=== PATIENT | female | born 1985 | race Caucasian/White ===

== ENCOUNTER 2016-04-27 06:58 | Day surgery (SDC) | payer MEDICAID, OTHER ==
[~2016-04-27 06:58] MED LIST: Lactated Ringers 1,000 ML IV SCH; Sodium Chloride 0.9% 10 ML Syringe FLUSH PRN
[2016-04-27] MEDS ORDERED: Lactated Ringers 1,000 ML IV ONE (08:00)
[2016-04-27] MEDS ORDERED: Propofol 200 MG/20 ML SDV IV ONE (08:00)
[2016-04-27] MEDS ORDERED: Midazolam 1 MG/ML 2 ML SDV IV ONE (08:00)
[2016-04-27] MEDS ORDERED: Lidocaine 2% 100 MG/5 ML Syringe IVPUSH ONE (08:00)
--- NOTE | 2016-04-27 08:38 | PCM.OPNOTE ---
- General Post-Op/Procedure Note Date of Surgery/Procedure: 04/27/16 Operative Procedure(s): c scope Findings: internal hemorrhoids Pre Op Diagnosis: hematochezia Post-Op Diagnosis: internal hemorrhoids Anesthesia Technique: ALANA Primary Surgeon: Robin Fernandez Anesthesia Provider: Mayra Hernandez Pathology: none Complications: None Condition: Good Free Text/Narrative:: see dictation
--- NOTE | 2016-04-27 08:42 | PREOP ---
ADMISSION DATE: 04/27/2016 CHIEF COMPLAINT: Blood per rectum. HISTORY OF PRESENT ILLNESS: This is a 30-year-old white female, who is referred with a 3-day history of bleeding per rectum happening on an intermittent basis, but has now increase recently. The test was obtained apparently and was positive. She has had some abdominal pain as well as some cramping, does get pain on occasion with defecation. She has never had a colonoscopy. She does have a family history of colon cancer with a grandparent having had cancer. MEDICATIONS: Include: 1. vitamin with iron 1 per day. 2. Zinc 50 mg capsule 1 per day. 3. Calcium 600 mg tablet once per day. 4. Vitamin C 500 mg daily. 5. Zoloft 100 mg daily. 6. Klonopin 1 mg per day. 7. Levothyroxine 150 mcg daily. 8. Ibuprofen 200 mg on a p.r.n. basis. 9. Tylenol as needed. ALLERGIES: She has no known drug allergies. PAST MEDICAL HISTORY: Significant for a history of obesity, depressive disorder, idiopathic hirsutism, gout, myopia, fatigue, hypothyroidism, postsurgical. She has a history of a Hurthle cell carcinoma of the thyroid, vitamin D deficiency, seborrheic dermatitis, history of a duodenal switch, polycystic ovarian disease, zinc deficiency, vitamin B6 deficiency in , and history of infertility. She has a history of sleep disorder, obstructive sleep apnea, as well as a history of a difficult intubation and laparoscopic cholecystectomy. FAMILY HISTORY: Significant for coronary artery disease and heart disease, hypertension, depression, alcohol abuse, hypercholesterolemia, COPD, anxiety. 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 She is a current everyday smoker, does not drink. REVIEW OF SYSTEMS: CONSTITUTIONAL: Positive for night sweats. HEENT: Negative. Eyes, positive for occasional discharge of the right eye. RESPIRATORY: Negative. CARDIOVASCULAR: Positive for chest pain, which apparently happens about once a month on the right side of the chest. GASTROINTESTINAL: As per HPI. GENITOURINARY: Negative. MUSCULOSKELETAL: Positive for back pain. SKIN: Negative. ALLERGIC: Denies any environmental or food allergies. NEUROLOGIC: She gets occasional numbness in her fingers, depending on the position of her hands. PHYSICAL EXAMINATION: GENERAL: This is a well-developed, well-nourished female, appearing in no acute distress. HEENT: Grossly within normal limits. LUNGS: Clear to auscultation. HEART: Regular rate and rhythm. ABDOMEN: Soft and nontender. ASSESSMENT: Hematochezia. PLAN: Colonoscopy. Procedure and risks explained to the patient, to include bleeding, infection, and perforation. The patient expresses understanding, and she asked us to proceed. /[id number] /BRIANNAL
[2016-04-27 10:02] VITALS: BP 85/58
--- NOTE | 2016-04-27 11:15 | OR ---
DATE OF OPERATION: 04/27/2016 SURGEON: Robin Fernandez MD PROCEDURE PERFORMED: Colonoscopy. PREOPERATIVE DIAGNOSIS: Hematochezia. POSTOPERATIVE DIAGNOSIS: Internal hemorrhoids. INDICATIONS FOR PROCEDURE: This is a 30-year-old white female, referred with a history of intermittent bleeding per rectum. This has been going on for several years. It has recently gotten worse. She was offered and accepted a colonoscopy. DESCRIPTION OF OPERATION: After an excellent IV sedation was administered, digital rectal exam was performed. No marked abnormality was noted. The flexible colonoscope was inserted and advanced without difficulty to the patient's cecum. The prep was excellent. The following findings were noted. Ascending colon, unremarkable. Transverse colon, unremarkable. Descending colon, unremarkable. Sigmoid and rectum unremarkable. On retroflexion of the scope, there was some evidence of some internal hemorrhoids, which appeared to be the cause of her bleeding. Colon was deflated, and the scope was removed. The patient tolerated the procedure well and was taken to recovery room in good condition. I would recommend a high-fiber diet as well as some Anusol cream with applicator. /[id number] /MODL
== END 2016-04-27 09:40 | disposition home or self-care (01) ==
LOC: FB.SDS 06:58
PROVIDERS: ATTEND Surgery
PROC: 0DJD8ZZ Inspection of Lower Intestinal Tract, Via Natural or Artificial Opening Endoscopic (ICD-10-PCS; principal; 2016-04-27)
DX: K92.1 Melena (principal); K64.8 Other hemorrhoids; E66.9 Obesity, unspecified; F32.9 Major depressive disorder, single episode, unspecified; L68.0 Hirsutism; M10.9 Gout, unspecified; H52.10 Myopia, unspecified eye; E03.9 Hypothyroidism, unspecified; E55.9 Vitamin D deficiency, unspecified; G47.33 Obstructive sleep apnea (adult) (pediatric); Z79.899 Other long term (current) drug therapy; F17.200 Nicotine dependence, unspecified, uncomplicated
CPT/HCPCS: 81025; J2250; J2704; J7120

== ENCOUNTER 2017-02-12 20:35 | Observation (INO) | payer BC, SELFPAY ==
--- NOTE | 2017-02-12 20:49 | EDM.PDOC ---
ED HPI GENERAL MEDICAL PROBLEM - General Stated Complaint: INFECTION Time Seen by Provider: 02/12/17 20:35 Source of Information: Reports: Patient, Family History Limitations: Reports: No Limitations - History of Present Illness INITIAL COMMENTS - FREE TEXT/NARRATIVE: 31 y.o.w.f s/p Panniculectomy 02/02/2017 was seen by her plastic surgeon at [facility] wound check today. fluid for Gram stain and Cx was taken at [facility] today and the pat was started on Augmentin. Pt came to the ed today because of of a rash and pain at her lower abd. wall at the surgical site. Temp was elevated. No N/V/D dizziness or any other acute medical issues. Pt refised pain meds BP 125/58 Pulse 100 temp 39.8 O2 100% RR 18 Onset Date: 02/12/17 Onset Time: 12:00 Duration: Hour(s):, Getting Worse Location: Reports: Abdomen (wall) Quality: Reports: Ache, Burning, Dull Severity: Moderate Improves with: Reports: Rest Worsens with: Reports: Movement Context: Reports: Other (S/P panectomy 02/02/2017) Lower Abdomen Pain Score (Numeric/FACES): 8 - Related Data Allergies Allergy/AdvReac Type Severity Reaction Status Date / Time No Known Allergies Allergy Verified 02/12/17 20:59 Home Meds: Home Meds Levothyroxine 150 mcg PO [id number] 04/24/16 [History] Sertraline [Zoloft] 200 mg PO DAILY 04/24/16 [History] ALPRAZolam [Xanax] 0.5 mg PO Q8H PRN 02/13/17 [History] Bariatric Multivitamin 1 tab PO DAILY 02/13/17 [History] Docusate Sodium [Colace] 100 mg PO BID 02/13/17 [History] Gabapentin [Neurontin] 100 mg PO BID 02/13/17 [History] Levothyroxine 300 mcg PO LEIJA@0600 02/13/17 [History] busPIRone [Buspar] 15 mg PO BID 02/13/17 [History] hydrOXYzine HCl [hydrOXYzine] 25 mg PO BEDTIME PRN tablet 02/13/17 [Rx] oxyCODONE HCl/Acetaminophen [Endocet 5-325 Tablet] 1 - 2 tab PO Q4H PRN [History] traMADol [Ultram] 100 mg PO ONETIME PRN tablet 02/13/17 [Rx] Past Medical History Cardiovascular History: Reports: None Respiratory History: Reports: Sleep Apnea 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 History: Reports: Polycystic Ovaries, Psychiatric History: Reports: Depression Endocrine/Metabolic History: Reports: Hypothyroidism, Vitamin D Deficiency, Other (See Below) Other Endocrine/Metabolic History: ZINC DEFICIENCY, IDIOPATHIC HIRSUTISM Hematologic History: Reports: Other (See Below) Other Hematologic History: B6 DEFICIENCY Oncologic (Cancer) History: Reports: Thyroid Dermatologic History: Reports: Seborrheic Dermatitis - Past Surgical History HEENT Surgical History: Reports: Oral Surgery GI Surgical History: Reports: Bariatric Procedure, Cholecystectomy Social & Family History - Tobacco Use Smoking Status *Q: Current Every Day Smoker Years of Tobacco use: 4 Packs/Tins Daily: 0.5 Used Tobacco, but Quit: No - Caffeine Use Caffeine Use: Reports: Soda - Recreational Drug Use Recreational Drug Use: No Drug Use in Last 12 Months: No ED ROS GENERAL - Review of Systems Review Of Systems: See Below Constitutional: Reports: No Symptoms HEENT: Reports: No Symptoms Respiratory: Reports: No Symptoms Cardiovascular: Reports: No Symptoms Endocrine: Reports: No Symptoms GI/Abdominal: Reports: No Symptoms : Reports: No Symptoms Musculoskeletal: Reports: No Symptoms Skin: Reports: Wound (cellulitis) Neurological: Reports: No Symptoms Psychiatric: Reports: No Symptoms Hematologic/Lymphatic: Reports: No Symptoms Immunologic: Reports: No Symptoms ED EXAM, SKIN/RASH Exam: See Below Exam Limited By: No Limitations General Appearance: Alert, WD/WN, Mild Distress, Obese (morbid) Eye Exam: Bilateral Eye: Normal Inspection Ears: Normal External Exam Nose: Normal Inspection Throat/Mouth: Normal Inspection, Normal Lips Head: Atraumatic, Normocephalic Neck: Normal Inspection, Supple, Non-Tender Respiratory/Chest: No Respiratory Distress, Lungs Clear, Normal Breath Sounds Cardiovascular: Normal Peripheral Pulses, Regular Rate, Rhythm, No Edema, No Gallop Peripheral Pulses: 1+: Femoral (R) GI/Abdominal: Normal Bowel Sounds, Soft, Non-Tender, No Organomegaly (Female) Exam: Deferred Rectal (Female) Exam: Deferred Back Exam: Normal Inspection, Full Range of Motion Extremities: Normal Inspection, Normal Range of Motion, Non-Tender, No Pedal Edema, Normal Capillary Refill Neurological: Alert, Oriented, CN II-XII Intact, Normal Cognition, Normal Gait Psychiatric: Normal Affect, Normal Mood Skin: Warm, Dry, Rash (lower abdomine, possible formable abscess, not drainable) Location, Skin: Abdomen (wall) Characteristics: Erythematous Lymphatic: No Adenopathy EKG INTERPRETATION EKG Date: 02/12/17 Time: 21:55 Rhythm: NSR Rate (Beats/Min): 90 [place]: Normal P-Wave: Present QRS: Normal ST-T: Normal QT: Normal Comparison: NA - No Prior EKG Course - Vital Signs Text/Narrative:: 31 y.o.w.f s/p Panniculectomy 02/02/2017 [facility] fluid for Gram stain and Cx was taken at [facility] today and the pat was started on Augmentin. Pt came to the ed today because of of a rash and pain at her lower abd. wall at the surgical site. Temp was elevated. No N/V/D dizziness or any other acute medical issues. Pt refised pain meds BP 125/58 Pulse 100 temp 39.8 O2 100% RR 18 PE: Obese, lower abd wall cellulitis, possible formable abscess lower abd. wall , non drainable. Imaging: Abddominal wall cellulitis, no drainable subcutaneous fluid collection , official report is pending Labs: WBC 20.5 witj left shift Cx results are pending. Lactic acid 1.2 , Potassium: 2.8 ECG: NSR Impression: Abdominal wall cellulitis with possible abscess forming(not drainable), S/P Panniculectomy, Leucocytosis, Hypokalemia Tx: Rocephin, Potassium, NS, Toradol, Morphine 10.01 pm Consultation: Dr. Saunders [facility] surgeon: CT abd/pelvis without any contrast, Abx iv, admit for observation at [facility] 11.21 pm Consultation: Dr. Saunders to review the CT Abd/pelvis: No drainable abscess, Gram stain and Cx from Wound drainage right lower abd were taken in [place] today. Recommended to give I.V abx til temp and WBC are nl, then to switch to PO Abx. Reexam: Improved, Fever subsided Plan: admit to [facility]. Last Recorded V/S: Last Vital Signs Temp 37.1 C 02/13/17 12:00 Pulse 86 02/13/17 12:00 Resp 18 02/13/17 12:00 BP 103/64 02/13/17 12:00 Pulse Ox 100 02/13/17 12:00 - Orders/Labs/Meds Orders: Active Orders 24 hr Category Date Time Status Abdomen Pelvis wo Cont [CT] Stat Exams 02/12/17 22:03 Taken CULTURE BLOOD [BC] Urgent Lab 02/12/17 21:00 Received CULTURE BLOOD [BC] Urgent Lab 02/12/17 21:05 Received Blood Culture x2 Reflex Set [OM.PC] Urgent Oth 02/12/17 20:47 Ordered Saline Lock Insert [OM.PC] Routine Oth 02/12/17 22:08 Ordered EKG 12 Lead [EK] Routine Ther 02/12/17 21:45 Ordered Labs: Laboratory Tests 02/12/17 02/12/17 02/12/17 Range/Units 21:00 21:00 21:00 WBC 20.3 H (4.5-12.0) X10-3/uL RBC 3.31 (3.23-5.20) x10(6)uL Hgb 10.1 L (11.5-15.5) g/dL Hct 29.4 L (30.0-51.3) % MCV 88.7 (80-96) fL MCH 30.4 (27.7-33.6) pg MCHC 34.3 (32.2-35.4) g/dL RDW 13.1 (11.5-15.5) % Plt Count 352 (125-369) X10(3)uL MPV 8.0 (7.4-10.4) fL Add Manual Diff Yes Neutrophils % (Manual) 84 H (46-82) % Band Neutrophils % 3 (0-6) % Lymphocytes % (Manual) 10 L (13-37) % Monocytes % (Manual) 3 L (4-12) % Sodium 136 (135-145) mmol/L Potassium 2.8 L* (3.5-5.3) mmol/L Chloride 101 (100-110) mmol/L Carbon Dioxide 25 (21-32) mmol/L BUN 8 (7-18) mg/dL Creatinine 0.8 (0.55-1.02) mg/dL Est Cr Clr Drug Dosing 90.00 mL/min Estimated GFR (MDRD) > 60 (>60) BUN/Creatinine Ratio 10.0 (9-20) Glucose 107 (80-116) mg/dL Lactic Acid 1.2 (0.4-2.2) mmol/L Calcium 8.0 L (8.6-10.2) mg/dL Urine Color (YELLOW) Urine Appearance (CLEAR) Urine pH (5.0-6.5) Ur Specific [place] (1.010-1.025) Urine Protein (NEGATIVE) mg/dL Urine Glucose (UA) (NEGATIVE) mg/dL Urine Ketones (NEGATIVE) mg/dL Urine Occult Blood (NEGATIVE) Urine Nitrite (NEGATIVE) Urine Bilirubin (NEGATIVE) Urine Urobilinogen (NEGATIVE) mg/dL Ur Leukocyte Esterase (NEGATIVE) Urine RBC (0) Urine WBC (0) Ur Squamous Epith Cells (NS,R,O) Urine Bacteria (NS) 02/12/17 Range/Units 22:18 WBC (4.5-12.0) X10-3/uL RBC (3.23-5.20) x10(6)uL Hgb (11.5-15.5) g/dL Hct (30.0-51.3) % MCV (80-96) fL MCH (27.7-33.6) pg MCHC (32.2-35.4) g/dL RDW (11.5-15.5) % Plt Count (125-369) X10(3)uL MPV (7.4-10.4) fL Add Manual Diff Neutrophils % (Manual) (46-82) % Band Neutrophils % (0-6) % Lymphocytes % (Manual) (13-37) % Monocytes % (Manual) (4-12) % Sodium (135-145) mmol/L Potassium (3.5-5.3) mmol/L Chloride (100-110) mmol/L Carbon Dioxide (21-32) mmol/L BUN (7-18) mg/dL Creatinine (0.55-1.02) mg/dL Est Cr Clr Drug Dosing mL/min Estimated GFR (MDRD) (>60) BUN/Creatinine Ratio (9-20) Glucose (80-116) mg/dL Lactic Acid (0.4-2.2) mmol/L Calcium (8.6-10.2) mg/dL Urine Color Yellow (YELLOW) Urine Appearance Clear (CLEAR) Urine pH 6.0 (5.0-6.5) Ur Specific [place] 1.010 (1.010-1.025) Urine Protein Negative (NEGATIVE) mg/dL Urine Glucose (UA) Normal (NEGATIVE) mg/dL Urine Ketones Negative (NEGATIVE) mg/dL Urine Occult Blood Negative (NEGATIVE) Urine Nitrite Negative (NEGATIVE) Urine Bilirubin Negative (NEGATIVE) Urine Urobilinogen Normal (NEGATIVE) mg/dL Ur Leukocyte Esterase Negative (NEGATIVE) Urine RBC 0-5 (0) Urine WBC 0-5 (0) Ur Squamous Epith Cells Occasional (NS,R,O) Urine Bacteria Rare H (NS) Meds: Medications Discontinued Medications Generic Name Dose Route Start Last Admin Trade Name Freq PRN Reason Stop Dose Admin Acetaminophen 650 mg 02/12/17 21:14 02/12/17 21:17 Tylenol PO 02/12/17 21:15 650 mg NOW ONE Administration Acetaminophen 650 mg 02/13/17 07:48 02/13/17 08:18 Tylenol PO 650 mg Q4H PRN Administration Temperature Buspirone HCl 15 mg 02/13/17 09:15 02/13/17 09:57 Buspar PO 15 mg BID JENNI Administration Ceftriaxone Sodium 1,000 mg 02/12/17 21:50 02/12/17 23:27 Rocephin IM 02/12/17 21:51 Not Given ONETIME ONE Docusate Sodium 100 mg 02/13/17 09:15 02/13/17 10:06 Colace PO 100 mg BID JENNI Administration Gabapentin 100 mg 02/13/17 09:15 02/13/17 09:57 Neurontin PO 100 mg BID JENNI Administration Hydroxyzine HCl 25 mg 02/12/17 23:53 02/13/17 00:04 Atarax PO 25 mg BEDTIME PRN Administration Insomnia Ceftriaxone Sodium 2 gm/ 100 mls @ 200 mls/hr 02/12/17 22:04 02/12/17 22:46 Sodium Chloride IV 02/12/17 22:33 200 mls/hr ONETIME ONE Administration Sodium Chloride 1,000 mls @ 125 mls/hr 02/12/17 23:30 02/13/17 08:27 Normal Saline IV 125 mls/hr ASDIRECTED JENNI Administration Vancomycin HCl 2,000 mg/ 500 mls @ 250 mls/hr 02/13/17 11:00 02/13/17 11:47 Sodium Chloride IV 02/13/17 12:59 250 mls/hr ONETIME ONE Administration Piperacillin Sod/Tazobactam 50 mls @ 100 mls/hr 02/13/17 11:45 02/13/17 12:11 Sod 3.375 gm/ Sodium Chloride IV 02/13/17 12:14 100 mls/hr ONETIME ONE Administration Ibuprofen 600 mg 02/12/17 21:13 02/12/17 21:16 Motrin PO 02/12/17 21:14 600 mg ONETIME ONE Administration Levothyroxine Sodium 150 mcg 02/15/17 06:00 Levothyroxine PO MoTuWeThFrSa JENNI Levothyroxine Sodium 150 mcg 02/13/17 09:45 02/13/17 09:57 Levothyroxine PO 02/13/17 09:46 150 mcg ONETIME ONE Administration Levothyroxine Sodium 300 mcg 02/14/17 06:00 Levothyroxine PO Leija@0600 JENNI Morphine Sulfate 2 mg 02/12/17 23:18 02/13/17 00:03 Morphine IVPUSH 02/12/17 23:19 2 mg ONETIME STA Administration Multivitamins/Minerals 1 tab 02/13/17 09:15 02/13/17 10:06 Thera M Plus PO 1 tab DAILY JENNI Administration Ondansetron HCl 4 mg 02/12/17 23:11 Zofran IV Q4H PRN Nausea/Vomiting Oxycodone/Acetaminophen 2 tab 02/13/17 09:05 02/13/17 10:06 Percocet 325-5 Mg PO 2 tab Q4H PRN Administration Pain Piperacillin Sod/Tazobactam Sod 3.375 gm 02/13/17 11:00 02/13/17 12:18 Zosyn IV 02/13/17 11:01 Not Given ONETIME ONE Potassium Chloride 40 meq 02/12/17 21:45 02/12/17 21:50 Klor-Con M20 PO 02/12/17 21:46 40 meq ONETIME ONE Administration Sertraline HCl 200 mg 02/13/17 09:15 02/13/17 09:57 Zoloft PO 200 mg DAILY JENNI Administration Sodium Chloride 10 ml 02/12/17 22:08 02/12/17 22:40 Saline Flush FLUSH 10 ml ASDIRECTED PRN Administration Keep Vein Open Tramadol HCl 100 mg 02/13/17 00:03 02/13/17 05:56 Ultram PO 02/13/17 00:04 Not Given ONETIME ONE Tramadol HCl 100 mg 02/13/17 05:51 Ultram PO 02/14/17 05:52 ONETIME PRN Pain Vancomycin HCl Confirm 02/13/17 11:36 02/13/17 11:53 Vancomycin Administered 02/13/17 11:37 Not Given Dose 2,000 mg .ROUTE .STK-MED ONE Departure - Departure Time of Disposition: 21:00 Disposition: Refer to Observation Condition: Fair Clinical Impression: Cellulitis - Discharge Information - My Orders Last 24 Hours: My Active Orders 02/12/17 20:47 Blood Culture x2 Reflex Set [OM.PC] Urgent 02/12/17 21:00 CULTURE BLOOD [BC] Urgent 02/12/17 21:05 CULTURE BLOOD [BC] Urgent 02/12/17 21:45 EKG 12 Lead [EK] Routine 02/12/17 22:03 Abdomen Pelvis wo Cont [CT] Stat 02/12/17 22:08 Saline Lock Insert [OM.PC] Routine - Assessment/Plan Last 24 Hours: My Active Orders 02/12/17 20:47 Blood Culture x2 Reflex Set [OM.PC] Urgent 02/12/17 21:00 CULTURE BLOOD [BC] Urgent 02/12/17 21:05 CULTURE BLOOD [BC] Urgent 02/12/17 21:45 EKG 12 Lead [EK] Routine 02/12/17 22:03 Abdomen Pelvis wo Cont [CT] Stat 02/12/17 22:08 Saline Lock Insert [OM.PC] Routine
[2017-02-12] MEDS ORDERED: Ibuprofen 600 MG Tab PO ONE (21:13)
[2017-02-12] MEDS ORDERED: Acetaminophen 325 MG Tab PO ONE (21:14)
[2017-02-12] MEDS ORDERED: Potassium Chloride 20 MEQ Tab.ER PO ONE (21:45)
[2017-02-12] MEDS ORDERED: cefTRIAXone 1,000 MG VIAL IM ONE (21:50)
[2017-02-12] MEDS ORDERED: cefTRIAXone 2 GM in Sodium Chloride 0.9% 100 ML IV ONE (22:04)
[2017-02-12] MEDS ORDERED: Sodium Chloride 0.9% 10 ML Syringe FLUSH PRN (22:08)
[2017-02-12] MEDS ORDERED: Docusate Sodium 100 MG Cap PO PRN (23:11)
[2017-02-12] MEDS ORDERED: Ondansetron 4 MG/2 ML SDV IV PRN (23:11)
[2017-02-12] MEDS ORDERED: Morphine 2 MG/ML Syringe IVPUSH STA (23:18)
[2017-02-12] MEDS: Sodium Chloride 0.9% 1,000 ML IV SCH (23:25)
[2017-02-12] MEDS ORDERED: hydrOXYzine HCl 25 MG Tab PO PRN (23:53)
[2017-02-13] MEDS ORDERED: traMADol 50 MG Tab PO ONE (00:03)
[2017-02-13] MEDS ORDERED: traMADol 50 MG Tab PO PRN (05:51)
[2017-02-13] MEDS ORDERED: Acetaminophen 325 MG Tab PO PRN (07:48)
[2017-02-13] MEDS: Sodium Chloride 0.9% 1,000 ML IV SCH (08:27)
[2017-02-13] MEDS ORDERED: Acetaminophen/oxyCODONE 325-5 MG Tab PO PRN (09:05)
--- NOTE | 2017-02-13 09:08 | PCM.HP ---
H&P History of Present Illness - General Date of Service: 02/13/17 Admit Problem/Dx: Admission Diagnosis/Problem Admission Diagnosis/Problem Cellulitis Source of Information: Patient - History of Present Illness Initial Comments - Free Text/Narative: 31 y f presents s/p paniculectomy 02/02/2018. seen by PA 2 days for post op drain removal. present to surgeon clinic for increased redness and drainage at sight. placed on augmentin. presented to ER with increased pain and drainage and temp 103F inability to tolerate oral augmentin. no n/v. no cp/pressure. no cough, sob or congestion. no dizziness or lightheadedness on standing. no abdominal destension. no opening of incision. no leg pain or swelling. Lower Abdomen Pain Score (Numeric/FACES): 3 - Related Data Allergies/Adverse Reactions: Allergies Allergy/AdvReac Type Severity Reaction Status Date / Time No Known Allergies Allergy Verified 02/12/17 20:59 Home Medications: Home Meds Levothyroxine 150 mcg PO MOTUWETHFRSA 04/24/16 [History] Sertraline [Zoloft] 200 mg PO DAILY 04/24/16 [History] ALPRAZolam [Xanax] 0.5 mg PO Q8H PRN 02/13/17 [History] Amoxicillin/Potassium Clav [Augmentin 875-125 Tablet] 1 each PO BID 02/13/17 [ History] Bariatric Multivitamin 1 tab PO DAILY 02/13/17 [History] Docusate Sodium [Colace] 100 mg PO BID 02/13/17 [History] Gabapentin [Neurontin] 100 mg PO BID 02/13/17 [History] Levothyroxine 300 mcg PO LEIJA@0600 02/13/17 [History] busPIRone [Buspar] 15 mg PO BID 02/13/17 [History] oxyCODONE HCl/Acetaminophen [Endocet 5-325 Tablet] 1 - 2 tab PO Q4H PRN [History] Past Medical History Cardiovascular History: Reports: None Respiratory History: Reports: Sleep Apnea HYDROGRAPHER History: Reports: Polycystic Ovaries, Neurological History: Reports: Neuropathy, Peripheral Psychiatric History: Reports: Depression Endocrine/Metabolic History: Reports: Hypothyroidism, Vitamin D Deficiency, Other (See Below) Other Endocrine/Metabolic History: ZINC DEFICIENCY, IDIOPATHIC HIRSUTISM Hematologic History: Reports: Other (See Below) Other Hematologic History: B6 DEFICIENCY Oncologic (Cancer) History: Reports: Thyroid Dermatologic History: Reports: Seborrheic Dermatitis - Infectious Disease History Infectious Disease History: Reports: Chicken Pox - Past Surgical History HEENT Surgical History: Reports: Oral Surgery GI Surgical History: Reports: Bariatric Procedure, Cholecystectomy Dermatological Surgical History: Reports: Plastic Surgical Reconstruction/Repair Other Dermatological Surgeries/Procedures: paniculectomy Social & Family History - Family History Family Medical History: Noncontributory - Tobacco Use Smoking Status *Q: Current Every Day Smoker Years of Tobacco use: 4 Packs/Tins Daily: 0.5 Used Tobacco, but Quit: No Month Tobacco Last Used: Nov 2016 Second Hand Smoke Exposure: No - Caffeine Use Caffeine Use: Reports: Soda - Recreational Drug Use Recreational Drug Use: No Drug Use in Last 12 Months: No H&P Review of Systems - Review of Systems: Review Of Systems: ROS reveals no pertinent complaints other than HPI. Exam - Exam Exam: See Below - Vital Signs Vital Signs: Vital Signs (72 hours) 02/12/17 02/12/17 02/12/17 21:02 21:16 23:06 Temperature 103.6 F H Temperature [ Oral] Temperature [ 103.6 F H 102.4 F H Tympanic] Pulse, Peripheral [ Left] Pulse, 100 Peripheral [ Right Pulse Oximetry] Respiratory 16 Rate Blood Pressure 125/58 L [Left Upper Arm ] O2 Sat by Pulse 100 Oximetry 02/12/17 02/12/17 02/13/17 23:20 23:45 04:30 Temperature Temperature [ 98.4 F 98.4 F Oral] Temperature [ 99.7 F Tympanic] Pulse, 80 76 Peripheral [ Left] Pulse, Peripheral [ Right Pulse Oximetry] Respiratory 18 17 16 Rate Blood Pressure 105/48 L 110/53 L [Left Upper Arm ] O2 Sat by Pulse 97 96 97 Oximetry 02/13/17 07:50 Temperature Temperature [ 99.1 F Oral] Temperature [ Tympanic] Pulse, 96 Peripheral [ Left] Pulse, Peripheral [ Right Pulse Oximetry] Respiratory 18 Rate Blood Pressure 100/56 L [Left Upper Arm ] O2 Sat by Pulse 95 Oximetry Weight: 85.049 kg - Exam General: Alert Lungs: Clear to Auscultation, Normal Respiratory Effort Cardiovascular: Regular Rate, Regular Rhythm GI/Abdominal Exam: Normal Bowel Sounds, Other (paniculectomy incision indurated 3 cm passed central with right bartolo sight draining mucopurulent discharge on palpation 3 ml. no incision dehiscense. very tender to palpation. ) Extremities: No: Non-Tender, No Pedal Edema, Pedal Edema Skin: Incision Psychiatric: Alert, Normal Affect, Normal Mood - Patient Data Lab Results Last 24 hrs: Laboratory Tests 02/12/17 02/12/17 02/12/17 Range/Units 21:00 21:00 21:00 WBC 20.3 H (4.5-12.0) X10-3/uL RBC 3.31 (3.23-5.20) x10(6)uL Hgb 10.1 L (11.5-15.5) g/dL Hct 29.4 L (30.0-51.3) % MCV 88.7 (80-96) fL MCH 30.4 (27.7-33.6) pg MCHC 34.3 (32.2-35.4) g/dL RDW 13.1 (11.5-15.5) % Plt Count 352 (125-369) X10(3)uL MPV 8.0 (7.4-10.4) fL Add Manual Diff Yes Neutrophils % (Manual) 84 H (46-82) % Band Neutrophils % 3 (0-6) % Lymphocytes % (Manual) 10 L (13-37) % Monocytes % (Manual) 3 L (4-12) % Hypersegmented Neuts Toxic Granulation (NOT SEEN) Sodium 136 (135-145) mmol/L Potassium 2.8 L* (3.5-5.3) mmol/L Chloride 101 (100-110) mmol/L Carbon Dioxide 25 (21-32) mmol/L BUN 8 (7-18) mg/dL Creatinine 0.8 (0.55-1.02) mg/dL Est Cr Clr Drug Dosing 90.00 mL/min Estimated GFR (MDRD) > 60 (>60) BUN/Creatinine Ratio 10.0 (9-20) Glucose 107 (80-116) mg/dL Lactic Acid 1.2 (0.4-2.2) mmol/L Calcium 8.0 L (8.6-10.2) mg/dL Urine Color (YELLOW) Urine Appearance (CLEAR) Urine pH (5.0-6.5) Ur Specific [place] (1.010-1.025) Urine Protein (NEGATIVE) mg/dL Urine Glucose (UA) (NEGATIVE) mg/dL Urine Ketones (NEGATIVE) mg/dL Urine Occult Blood (NEGATIVE) Urine Nitrite (NEGATIVE) Urine Bilirubin (NEGATIVE) Urine Urobilinogen (NEGATIVE) mg/dL Ur Leukocyte Esterase (NEGATIVE) Urine RBC (0) Urine WBC (0) Ur Squamous Epith Cells (NS,R,O) Urine Bacteria (NS) 02/12/17 02/13/17 02/13/17 Range/Units 22:18 06:35 06:35 WBC 18.5 H (4.5-12.0) X10-3/uL RBC 3.03 L (3.23-5.20) x10(6)uL Hgb 8.9 L (11.5-15.5) g/dL Hct 27.3 L (30.0-51.3) % MCV 90.3 (80-96) fL MCH 29.4 (27.7-33.6) pg MCHC 32.5 (32.2-35.4) g/dL RDW 13.1 (11.5-15.5) % Plt Count 246 (125-369) X10(3)uL MPV 8.3 (7.4-10.4) fL Add Manual Diff Yes Neutrophils % (Manual) 91 H (46-82) % Band Neutrophils % 1 (0-6) % Lymphocytes % (Manual) 5 L (13-37) % Monocytes % (Manual) 3 L (4-12) % Hypersegmented Neuts Moderate Toxic Granulation Few H (NOT SEEN) Sodium 140 (135-145) mmol/L Potassium 3.5 (3.5-5.3) mmol/L Chloride 107 D (100-110) mmol/L Carbon Dioxide 25 (21-32) mmol/L BUN 7 (7-18) mg/dL Creatinine 0.6 (0.55-1.02) mg/dL Est Cr Clr Drug Dosing 120.00 mL/min Estimated GFR (MDRD) > 60 (>60) BUN/Creatinine Ratio 11.7 (9-20) Glucose 92 (80-116) mg/dL Lactic Acid (0.4-2.2) mmol/L Calcium 8.1 L (8.6-10.2) mg/dL Urine Color Yellow (YELLOW) Urine Appearance Clear (CLEAR) Urine pH 6.0 (5.0-6.5) Ur Specific [place] 1.010 (1.010-1.025) Urine Protein Negative (NEGATIVE) mg/dL Urine Glucose (UA) Normal (NEGATIVE) mg/dL Urine Ketones Negative (NEGATIVE) mg/dL Urine Occult Blood Negative (NEGATIVE) Urine Nitrite Negative (NEGATIVE) Urine Bilirubin Negative (NEGATIVE) Urine Urobilinogen Normal (NEGATIVE) mg/dL Ur Leukocyte Esterase Negative (NEGATIVE) Urine RBC 0-5 (0) Urine WBC 0-5 (0) Ur Squamous Epith Cells Occasional (NS,R,O) Urine Bacteria Rare H (NS) Result Diagrams: 02/13/17 06:35 02/13/17 06:35 [place] Results Last 24 hrs: blood cultures x 2 pending. Imaging Impressions Last 24 hrs: CT scan abd 02/12/17 *Q Meaningful Use (ADM) - VTE *Q VTE Criteria *Q: - Stroke *Q Stroke Criteria *Q: - AMI *Q AMI Criteria *Q: - Problem List (1) Postoperative cellulitis of surgical wound SNOMED Code(s): 675120713 ICD Code: T81.4XXA - INFECTION FOLLOWING A PROCEDURE, INITIAL ENCOUNTER Status: Acute Priority: High Current Visit: Yes Qualifiers: Encounter type: initial encounter Qualified Code(s): T81.4XXA - Infection following a procedure, initial encounter (2) Status post panniculectomy SNOMED Code(s): 093873537, [id number] ICD Code: Z98.890 - OTHER SPECIFIED POSTPROCEDURAL STATES Status: Acute Priority: High Current Visit: Yes Onset Date: 02/02/17 Problem Details: Dr. Saunders- [facility] Plastic Surgery Problem List Initiated/Reviewed/Updated: Yes Orders Last 24hrs: My Active Orders 02/12/17 23:53 hydrOXYzine HCl [Atarax] 25 mg PO BEDTIME PRN 02/13/17 07:48 Acetaminophen [Tylenol] 650 mg PO Q4H PRN 02/13/17 09:05 Acetaminophen/oxyCODONE [Percocet 325-5 MG] 2 tab PO Q4H PRN 02/13/17 09:15 Docusate Sodium [Colace] 100 mg PO BID Gabapentin [Neurontin] 100 mg PO BID Multivitamins w-Iron/Ca/FA/Min [Thera M Plus] 1 tab PO DAILY Sertraline [Zoloft] 200 mg PO DAILY busPIRone [Buspar] 15 mg PO BID 02/13/17 11:00 Piperacillin/Tazobactam [Zosyn] 3.375 gm IV ONETIME ONE Vancomycin 2,000 mg Sodium Chloride 0.9% [Normal Saline] 250 ml IV ONETIME 02/14/17 06:00 Levothyroxine 300 mcg PO Leija@0600 02/15/17 06:00 Levothyroxine 150 mcg PO MoTuWeThFrSa Assessment/Plan Comment:: Spoke with pts plastic surgeon from [place] on the phone concerning above. will switch to vanco/zocyn IV and transfer by private vehicle to [facility] for direct admission and management for post operative wound complication at risk for abscess formation and or wound dehiscence. need for IV abx and surgical review/cares. pt agrees to above plan of care. will get abx in prior to discharge and IV to remain in place. I appreciate [facility] and Dr. Chip MD for his assistance and management of this patient.
[2017-02-13] MEDS ORDERED: Multivitamins with Iron/Calcium/Folic Acid/Minerals Tab PO SCH (09:15)
[2017-02-13] MEDS ORDERED: busPIRone 15 MG Tab PO SCH (09:15)
[2017-02-13] MEDS ORDERED: Gabapentin 100 MG Cap PO SCH (09:15)
[2017-02-13] MEDS ORDERED: Docusate Sodium 100 MG Cap PO SCH (09:15)
[2017-02-13] MEDS ORDERED: Sertraline 100 MG Tab PO SCH (09:15)
[2017-02-13] MEDS ORDERED: Levothyroxine 150 MCG Tab PO ONE (09:45)
[2017-02-13] MEDS ORDERED: Vancomycin 1,000 MG SDV ONE (11:36)
--- NOTE | 2017-02-13 11:44 | PCM.DCSUM1 ---
Discharge Summary - Hospital Course Brief History: 31 y f presents s/p paniculectomy 02/02/2018. seen by PA 2 days for post op drain removal. present to surgeon clinic for increased redness and drainage at sight. placed on augmentin. presented to ER with increased pain and drainage and temp 103F inability to tolerate oral augmentin. no n/v. no cp/ pressure. no cough, sob or congestion. no dizziness or lightheadedness on standing. no abdominal destension. no opening of incision. no leg pain or swelling. - Discharge Data Discharge Date: 02/13/17 Discharge Disposition: DC/Tfer to Acute Hospital 02 Condition: Fair - Discharge Diagnosis/Problem(s) (1) Postoperative cellulitis of surgical wound SNOMED Code(s): 087339265 ICD Code: T81.4XXA - INFECTION FOLLOWING A PROCEDURE, INITIAL ENCOUNTER Status: Acute Priority: High Current Visit: Yes Qualifiers: Encounter type: initial encounter Qualified Code(s): T81.4XXA - Infection following a procedure, initial encounter (2) Status post panniculectomy SNOMED Code(s): 245546795, 469155921 ICD Code: Z98.890 - OTHER SPECIFIED POSTPROCEDURAL STATES Status: Acute Priority: High Current Visit: Yes Onset Date: 02/02/17 Problem Details: Dr. Saunders- [facility] Plastic Surgery - Patient Summary/Data Hospital Course: Pt admitted and given Rocephen 2g IV x 1. IV hydration. wound cares. antipyrectics have improved her temps. drainage continues and with increasing erythema, her surgeon was contacted regarding transfer for assessment and management. blood cultures x 2 pending. labs reviewed. pt otherwise stable. [facility]. Zosyn and Vanco IV will be given prior to transfer. - Discharge Plan Home Medications: Home Meds Levothyroxine 150 mcg PO MOTUWETHFRSA 04/24/16 [History] Sertraline [Zoloft] 200 mg PO DAILY 04/24/16 [History] ALPRAZolam [Xanax] 0.5 mg PO Q8H PRN 02/13/17 [History] Bariatric Multivitamin 1 tab PO DAILY 02/13/17 [History] Docusate Sodium [Colace] 100 mg PO BID 02/13/17 [History] Gabapentin [Neurontin] 100 mg PO BID 02/13/17 [History] Levothyroxine 300 mcg PO LEIJA@0600 02/13/17 [History] busPIRone [Buspar] 15 mg PO BID 02/13/17 [History] hydrOXYzine HCl [hydrOXYzine] 25 mg PO BEDTIME PRN tablet 02/13/17 [Rx] oxyCODONE HCl/Acetaminophen [Endocet 5-325 Tablet] 1 - 2 tab PO Q4H PRN [History] traMADol [Ultram] 100 mg PO ONETIME PRN tablet 02/13/17 [Rx] Referrals: PCP,Not In Area [Primary Care Provider] - - Discharge Summary/Plan Comment DC Time >30 min.: Yes Discharge Summary/Plan Comment: My Active Orders 02/12/17 23:53 hydrOXYzine HCl [Atarax] 25 mg PO BEDTIME PRN 02/13/17 07:48 Acetaminophen [Tylenol] 650 mg PO Q4H PRN 02/13/17 09:05 Acetaminophen/oxyCODONE [Percocet 325-5 MG] 2 tab PO Q4H PRN 02/13/17 09:15 Docusate Sodium [Colace] 100 mg PO BID Gabapentin [Neurontin] 100 mg PO BID Multivitamins w-Iron/Ca/FA/Min [Thera M Plus] 1 tab PO DAILY Sertraline [Zoloft] 200 mg PO DAILY busPIRone [Buspar] 15 mg PO BID 02/13/17 11:00 Vancomycin 2,000 mg Sodium Chloride 0.9% [Normal Saline] 250 ml IV ONETIME 02/13/17 11:45 Piperacillin/Tazobactam [Zosyn] 3.375 gm Sodium Chloride 0.9% [Normal Saline] 50 ml IV ONETIME 02/14/17 06:00 Levothyroxine 300 mcg PO Leija@0600 02/15/17 06:00 Levothyroxine 150 mcg PO MoTuWeThFrSa Otherwise See Hospital Course. - General Info Date of Service: 02/13/17 Subjective Update: See Brief History. - Review of Systems Systems Review Comment: see brief hx. last meal, 0930 today. Currently menstrating. - Patient Data Vitals - Most Recent: Vital Signs (72 hours) 02/12/17 02/12/17 02/12/17 21:02 21:16 23:06 Temperature 103.6 F H Temperature [ Oral] Temperature [ 103.6 F H 102.4 F H Tympanic] Pulse, Peripheral [ Left] Pulse, 100 Peripheral [ Right Pulse Oximetry] Respiratory 16 Rate Blood Pressure 125/58 L [Left Upper Arm ] O2 Sat by Pulse 100 Oximetry 02/12/17 02/12/17 02/13/17 23:20 23:45 04:30 Temperature Temperature [ 98.4 F 98.4 F Oral] Temperature [ 99.7 F Tympanic] Pulse, 80 76 Peripheral [ Left] Pulse, Peripheral [ Right Pulse Oximetry] Respiratory 18 17 16 Rate Blood Pressure 105/48 L 110/53 L [Left Upper Arm ] O2 Sat by Pulse 97 96 97 Oximetry 02/13/17 07:50 Temperature Temperature [ 99.1 F Oral] Temperature [ Tympanic] Pulse, 96 Peripheral [ Left] Pulse, Peripheral [ Right Pulse Oximetry] Respiratory 18 Rate Blood Pressure 100/56 L [Left Upper Arm ] O2 Sat by Pulse 95 Oximetry Weight - Most Recent: 85.049 kg I&O - Last 24 hours: Intake & Output 02/12/17 02/13/17 02/13/17 22:59 06:59 14:59 Intake Total 815 Balance 815 Lab Results - Last 24 hrs: Laboratory Tests 02/12/17 02/12/17 02/12/17 Range/Units 21:00 21:00 21:00 WBC 20.3 H (4.5-12.0) X10-3/uL RBC 3.31 (3.23-5.20) x10(6)uL Hgb 10.1 L (11.5-15.5) g/dL Hct 29.4 L (30.0-51.3) % MCV 88.7 (80-96) fL MCH 30.4 (27.7-33.6) pg MCHC 34.3 (32.2-35.4) g/dL RDW 13.1 (11.5-15.5) % Plt Count 352 (125-369) X10(3)uL MPV 8.0 (7.4-10.4) fL Add Manual Diff Yes Neutrophils % (Manual) 84 H (46-82) % Band Neutrophils % 3 (0-6) % Lymphocytes % (Manual) 10 L (13-37) % Monocytes % (Manual) 3 L (4-12) % Hypersegmented Neuts Toxic Granulation (NOT SEEN) Sodium 136 (135-145) mmol/L Potassium 2.8 L* (3.5-5.3) mmol/L Chloride 101 (100-110) mmol/L Carbon Dioxide 25 (21-32) mmol/L BUN 8 (7-18) mg/dL Creatinine 0.8 (0.55-1.02) mg/dL Est Cr Clr Drug Dosing 90.00 mL/min Estimated GFR (MDRD) > 60 (>60) BUN/Creatinine Ratio 10.0 (9-20) Glucose 107 (80-116) mg/dL Lactic Acid 1.2 (0.4-2.2) mmol/L Calcium 8.0 L (8.6-10.2) mg/dL Urine Color (YELLOW) Urine Appearance (CLEAR) Urine pH (5.0-6.5) Ur Specific [place] (1.010-1.025) Urine Protein (NEGATIVE) mg/dL Urine Glucose (UA) (NEGATIVE) mg/dL Urine Ketones (NEGATIVE) mg/dL Urine Occult Blood (NEGATIVE) Urine Nitrite (NEGATIVE) Urine Bilirubin (NEGATIVE) Urine Urobilinogen (NEGATIVE) mg/dL Ur Leukocyte Esterase (NEGATIVE) Urine RBC (0) Urine WBC (0) Ur Squamous Epith Cells (NS,R,O) Urine Bacteria (NS) 02/12/17 02/13/17 02/13/17 Range/Units 22:18 06:35 06:35 WBC 18.5 H (4.5-12.0) X10-3/uL RBC 3.03 L (3.23-5.20) x10(6)uL Hgb 8.9 L (11.5-15.5) g/dL Hct 27.3 L (30.0-51.3) % MCV 90.3 (80-96) fL MCH 29.4 (27.7-33.6) pg MCHC 32.5 (32.2-35.4) g/dL RDW 13.1 (11.5-15.5) % Plt Count 246 (125-369) X10(3)uL MPV 8.3 (7.4-10.4) fL Add Manual Diff Yes Neutrophils % (Manual) 91 H (46-82) % Band Neutrophils % 1 (0-6) % Lymphocytes % (Manual) 5 L (13-37) % Monocytes % (Manual) 3 L (4-12) % Hypersegmented Neuts Moderate Toxic Granulation Few H (NOT SEEN) Sodium 140 (135-145) mmol/L Potassium 3.5 (3.5-5.3) mmol/L Chloride 107 D (100-110) mmol/L Carbon Dioxide 25 (21-32) mmol/L BUN 7 (7-18) mg/dL Creatinine 0.6 (0.55-1.02) mg/dL Est Cr Clr Drug Dosing 120.00 mL/min Estimated GFR (MDRD) > 60 (>60) BUN/Creatinine Ratio 11.7 (9-20) Glucose 92 (80-116) mg/dL Lactic Acid (0.4-2.2) mmol/L Calcium 8.1 L (8.6-10.2) mg/dL Urine Color Yellow (YELLOW) Urine Appearance Clear (CLEAR) Urine pH 6.0 (5.0-6.5) Ur Specific [place] 1.010 (1.010-1.025) Urine Protein Negative (NEGATIVE) mg/dL Urine Glucose (UA) Normal (NEGATIVE) mg/dL Urine Ketones Negative (NEGATIVE) mg/dL Urine Occult Blood Negative (NEGATIVE) Urine Nitrite Negative (NEGATIVE) Urine Bilirubin Negative (NEGATIVE) Urine Urobilinogen Normal (NEGATIVE) mg/dL Ur Leukocyte Esterase Negative (NEGATIVE) Urine RBC 0-5 (0) Urine WBC 0-5 (0) Ur Squamous Epith Cells Occasional (NS,R,O) Urine Bacteria Rare H (NS) JOYA Results - Last 24 hrs: Blood Cultures pending. Med Orders - Current: Current Medications Acetaminophen (Tylenol) 650 mg PO Q4H PRN PRN Reason: Temperature Last Admin: 02/13/17 08:18 Dose: 650 mg Buspirone HCl (Buspar) 15 mg PO BID [facility] Last Admin: 02/13/17 09:57 Dose: 15 mg Docusate Sodium (Colace) 100 mg PO BID [facility] Last Admin: 02/13/17 10:06 Dose: 100 mg Gabapentin (Neurontin) 100 mg PO BID [facility] Last Admin: 02/13/17 09:57 Dose: 100 mg Hydroxyzine HCl (Atarax) 25 mg PO BEDTIME PRN PRN Reason: Insomnia Last Admin: 02/13/17 00:04 Dose: 25 mg Sodium Chloride (Normal Saline) 1,000 mls @ 125 mls/hr IV ASDIRECTED [facility] Last Admin: 02/13/17 08:27 Dose: 125 mls/hr Vancomycin HCl 1,000 mg/ (Sodium Chloride) @ 250 mls/hr IV ONETIME ONE Stop: 02/13/17 12:59 Piperacillin Sod/Tazobactam (Sod 3.375 gm/ Sodium Chloride) 50 mls @ 100 mls/ hr IV ONETIME ONE Stop: 02/13/17 12:14 Levothyroxine Sodium (Levothyroxine) 150 mcg PO MoTuWeThFrSa [facility] Levothyroxine Sodium (Levothyroxine) 300 mcg PO Leija@0600 [facility] Multivitamins/Minerals (Thera M Plus) 1 tab PO DAILY [facility] Last Admin: 02/13/17 10:06 Dose: 1 tab Ondansetron HCl (Zofran) 4 mg IV Q4H PRN PRN Reason: Nausea/Vomiting Oxycodone/Acetaminophen (Percocet 325-5 Mg) 2 tab PO Q4H PRN PRN Reason: Pain Last Admin: 02/13/17 10:06 Dose: 2 tab Sertraline HCl (Zoloft) 200 mg PO DAILY [facility] Last Admin: 02/13/17 09:57 Dose: 200 mg Sodium Chloride (Saline Flush) 10 ml FLUSH ASDIRECTED PRN PRN Reason: Keep Vein Open Last Admin: 02/12/17 22:40 Dose: 10 ml Tramadol HCl (Ultram) 100 mg PO ONETIME PRN PRN Reason: Pain Stop: 02/14/17 05:52 Discontinued Medications Acetaminophen (Tylenol) 650 mg PO NOW ONE Stop: 02/12/17 21:15 Last Admin: 02/12/17 21:17 Dose: 650 mg Ceftriaxone Sodium 2 gm/ (Sodium Chloride) 100 mls @ 200 mls/hr IV ONETIME ONE Stop: 02/12/17 22:33 Last Admin: 02/12/17 22:46 Dose: 200 mls/hr Ibuprofen (Motrin) 600 mg PO ONETIME ONE Stop: 02/12/17 21:14 Last Admin: 02/12/17 21:16 Dose: 600 mg Levothyroxine Sodium (Levothyroxine) 150 mcg PO ONETIME ONE Stop: 02/13/17 09:46 Last Admin: 02/13/17 09:57 Dose: 150 mcg Morphine Sulfate (Morphine) 2 mg IVPUSH ONETIME STA Stop: 02/12/17 23:19 Last Admin: 02/13/17 00:03 Dose: 2 mg Potassium Chloride (Klor-Con M20) 40 meq PO ONETIME ONE Stop: 02/12/17 21:46 Last Admin: 02/12/17 21:50 Dose: 40 meq Tramadol HCl (Ultram) 100 mg PO ONETIME ONE Stop: 02/13/17 00:04 Last Admin: 02/13/17 05:56 Dose: Not Given - Exam Physical Findings Comments:: General: Alert Lungs: Clear to Auscultation, Normal Respiratory Effort Cardiovascular: Regular Rate, Regular Rhythm GI/Abdominal Exam: Normal Bowel Sounds, Other (paniculectomy incision indurated 3 cm passed central with right bartolo sight draining mucopurulent discharge on palpation 3 ml. no incision dehiscense. very tender to palpation. ) Extremities: No: Non-Tender, No Pedal Edema, Pedal Edema Skin: Incision Psychiatric: Alert, Normal Affect, Normal Mood *Q Meaningful Use (DIS) - VTE *Q VTE Criteria *Q: - Stroke *Q Stroke Criteria *Q: - AMI *Q AMI Criteria *Q:
[2017-02-13] MEDS ORDERED: Piperacillin/Tazobactam 3.375 GM in Sodium Chloride 0.9% 50 ML IV ONE (11:45)
--- NOTE | 2017-02-13 12:31 | PCM.DCSUM1 ---
Discharge Summary - Hospital Course Brief History: 31 y f presents s/p paniculectomy 02/02/2018. seen by PA 2 days for post op drain removal. present to surgeon clinic for increased redness and drainage at sight. placed on augmentin. presented to ER with increased pain and drainage and temp 103F inability to tolerate oral augmentin. no n/v. no cp/ pressure. no cough, sob or congestion. no dizziness or lightheadedness on standing. no abdominal destension. no opening of incision. no leg pain or swelling. - Discharge Data Discharge Date: 02/13/17 Discharge Disposition: DC/Tfer to Acute Hospital 02 Condition: Fair - Discharge Diagnosis/Problem(s) (1) Postoperative cellulitis of surgical wound SNOMED Code(s): 675016859 ICD Code: T81.4XXA - INFECTION FOLLOWING A PROCEDURE, INITIAL ENCOUNTER Status: Acute Priority: High Current Visit: Yes Qualifiers: Encounter type: initial encounter Qualified Code(s): T81.4XXA - Infection following a procedure, initial encounter (2) Status post panniculectomy SNOMED Code(s): 209433983, 161775012 ICD Code: Z98.890 - OTHER SPECIFIED POSTPROCEDURAL STATES Status: Acute Priority: High Current Visit: Yes Onset Date: 02/02/17 Problem Details: Dr. Saunders- Plastic Surgery - Patient Summary/Data Hospital Course: Pt admitted and given Rocephen 2g IV x 1. IV hydration. wound cares. antipyrectics have improved her temps. drainage continues and with increasing erythema, her surgeon was contacted regarding transfer for assessment and management. blood cultures x 2 pending. labs reviewed. pt otherwise stable. will transfer to her surgeon at [facility] for further evaluation and management. Zosyn and Vanco IV will be started and continued prior to and during transfer. - Discharge Plan Home Medications: Home Meds Levothyroxine 150 mcg PO MOTUWETHFRSA 04/24/16 [History] Sertraline [Zoloft] 200 mg PO DAILY 04/24/16 [History] ALPRAZolam [Xanax] 0.5 mg PO Q8H PRN 02/13/17 [History] Bariatric Multivitamin 1 tab PO DAILY 02/13/17 [History] Docusate Sodium [Colace] 100 mg PO BID 02/13/17 [History] Gabapentin [Neurontin] 100 mg PO BID 02/13/17 [History] Levothyroxine 300 mcg PO LEIJA@0600 02/13/17 [History] busPIRone [Buspar] 15 mg PO BID 02/13/17 [History] hydrOXYzine HCl [hydrOXYzine] 25 mg PO BEDTIME PRN tablet 02/13/17 [Rx] oxyCODONE HCl/Acetaminophen [Endocet 5-325 Tablet] 1 - 2 tab PO Q4H PRN [History] traMADol [Ultram] 100 mg PO ONETIME PRN tablet 02/13/17 [Rx] Referrals: PCP,Not In Area [Primary Care Provider] - - Discharge Summary/Plan Comment DC Time >30 min.: Yes Discharge Summary/Plan Comment: Patient is started on IV vancomycin 1 g as well as Zosyn IV. 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 - General Info Date of Service: 02/13/17 Subjective Update: see brief hx. last meal, 0930 today. Currently menstrating. - Review of Systems Systems Review Comment: see brief hx - Patient Data Vitals - Most Recent: Vital Signs (72 hours) 02/12/17 02/12/17 02/12/17 21:02 21:16 23:06 Temperature 103.6 F H Temperature [ Oral] Temperature [ 103.6 F H 102.4 F H Tympanic] Pulse, Peripheral [ Left] Pulse, 100 Peripheral [ Right Pulse Oximetry] Respiratory 16 Rate Blood Pressure 125/58 L [Left Upper Arm ] O2 Sat by Pulse 100 Oximetry 02/12/17 02/12/17 02/13/17 23:20 23:45 04:30 Temperature Temperature [ 98.4 F 98.4 F Oral] Temperature [ 99.7 F Tympanic] Pulse, 80 76 Peripheral [ Left] Pulse, Peripheral [ Right Pulse Oximetry] Respiratory 18 17 16 Rate Blood Pressure 105/48 L 110/53 L [Left Upper Arm ] O2 Sat by Pulse 97 96 97 Oximetry 02/13/17 07:50 Temperature Temperature [ 99.1 F Oral] Temperature [ Tympanic] Pulse, 96 Peripheral [ Left] Pulse, Peripheral [ Right Pulse Oximetry] Respiratory 18 Rate Blood Pressure 100/56 L [Left Upper Arm ] O2 Sat by Pulse 95 Oximetry Weight - Most Recent: 85.049 kg I&O - Last 24 hours: Vital Signs Temp 99.1 F 02/13/17 07:50 Pulse 96 02/13/17 07:50 Resp 18 02/13/17 07:50 BP 100/56 L 02/13/17 07:50 Pulse Ox 95 02/13/17 07:50 Intake & Output 02/12/17 02/13/17 02/13/17 22:59 06:59 14:59 Intake Total 815 Balance 815 Intake: Intake, IV Amount 815 Normal Saline 1,000 ML @ 815 125 mls/hr IV ASDIRECTED [facility] Rx#:[id number] Lab Results - Last 24 hrs: Laboratory Tests 02/12/17 02/12/17 02/12/17 Range/Units 21:00 21:00 21:00 WBC 20.3 H (4.5-12.0) X10-3/uL RBC 3.31 (3.23-5.20) x10(6)uL Hgb 10.1 L (11.5-15.5) g/dL Hct 29.4 L (30.0-51.3) % MCV 88.7 (80-96) fL MCH 30.4 (27.7-33.6) pg MCHC 34.3 (32.2-35.4) g/dL RDW 13.1 (11.5-15.5) % Plt Count 352 (125-369) X10(3)uL MPV 8.0 (7.4-10.4) fL Add Manual Diff Yes Neutrophils % (Manual) 84 H (46-82) % Band Neutrophils % 3 (0-6) % Lymphocytes % (Manual) 10 L (13-37) % Monocytes % (Manual) 3 L (4-12) % Hypersegmented Neuts Toxic Granulation (NOT SEEN) Sodium 136 (135-145) mmol/L Potassium 2.8 L* (3.5-5.3) mmol/L Chloride 101 (100-110) mmol/L Carbon Dioxide 25 (21-32) mmol/L BUN 8 (7-18) mg/dL Creatinine 0.8 (0.55-1.02) mg/dL Est Cr Clr Drug Dosing 90.00 mL/min Estimated GFR (MDRD) > 60 (>60) BUN/Creatinine Ratio 10.0 (9-20) Glucose 107 (80-116) mg/dL Lactic Acid 1.2 (0.4-2.2) mmol/L Calcium 8.0 L (8.6-10.2) mg/dL Urine Color (YELLOW) Urine Appearance (CLEAR) Urine pH (5.0-6.5) Ur Specific [place] (1.010-1.025) Urine Protein (NEGATIVE) mg/dL Urine Glucose (UA) (NEGATIVE) mg/dL Urine Ketones (NEGATIVE) mg/dL Urine Occult Blood (NEGATIVE) Urine Nitrite (NEGATIVE) Urine Bilirubin (NEGATIVE) Urine Urobilinogen (NEGATIVE) mg/dL Ur Leukocyte Esterase (NEGATIVE) Urine RBC (0) Urine WBC (0) Ur Squamous Epith Cells (NS,R,O) Urine Bacteria (NS) 02/12/17 02/13/17 02/13/17 Range/Units 22:18 06:35 06:35 WBC 18.5 H (4.5-12.0) X10-3/uL RBC 3.03 L (3.23-5.20) x10(6)uL Hgb 8.9 L (11.5-15.5) g/dL Hct 27.3 L (30.0-51.3) % MCV 90.3 (80-96) fL MCH 29.4 (27.7-33.6) pg MCHC 32.5 (32.2-35.4) g/dL RDW 13.1 (11.5-15.5) % Plt Count 246 (125-369) X10(3)uL MPV 8.3 (7.4-10.4) fL Add Manual Diff Yes Neutrophils % (Manual) 91 H (46-82) % Band Neutrophils % 1 (0-6) % Lymphocytes % (Manual) 5 L (13-37) % Monocytes % (Manual) 3 L (4-12) % Hypersegmented Neuts Moderate Toxic Granulation Few H (NOT SEEN) Sodium 140 (135-145) mmol/L Potassium 3.5 (3.5-5.3) mmol/L Chloride 107 D (100-110) mmol/L Carbon Dioxide 25 (21-32) mmol/L BUN 7 (7-18) mg/dL Creatinine 0.6 (0.55-1.02) mg/dL Est Cr Clr Drug Dosing 120.00 mL/min Estimated GFR (MDRD) > 60 (>60) BUN/Creatinine Ratio 11.7 (9-20) Glucose 92 (80-116) mg/dL Lactic Acid (0.4-2.2) mmol/L Calcium 8.1 L (8.6-10.2) mg/dL Urine Color Yellow (YELLOW) Urine Appearance Clear (CLEAR) Urine pH 6.0 (5.0-6.5) Ur Specific [place] 1.010 (1.010-1.025) Urine Protein Negative (NEGATIVE) mg/dL Urine Glucose (UA) Normal (NEGATIVE) mg/dL Urine Ketones Negative (NEGATIVE) mg/dL Urine Occult Blood Negative (NEGATIVE) Urine Nitrite Negative (NEGATIVE) Urine Bilirubin Negative (NEGATIVE) Urine Urobilinogen Normal (NEGATIVE) mg/dL Ur Leukocyte Esterase Negative (NEGATIVE) Urine RBC 0-5 (0) Urine WBC 0-5 (0) Ur Squamous Epith Cells Occasional (NS,R,O) Urine Bacteria Rare H (NS) JOYA Results - Last 24 hrs: BC x 2 pending. Med Orders - Current: Current Medications Acetaminophen (Tylenol) 650 mg PO Q4H PRN PRN Reason: Temperature Last Admin: 02/13/17 08:18 Dose: 650 mg Buspirone HCl (Buspar) 15 mg PO BID [facility] Last Admin: 02/13/17 09:57 Dose: 15 mg Docusate Sodium (Colace) 100 mg PO BID [facility] Last Admin: 02/13/17 10:06 Dose: 100 mg Gabapentin (Neurontin) 100 mg PO BID [facility] Last Admin: 02/13/17 09:57 Dose: 100 mg Hydroxyzine HCl (Atarax) 25 mg PO BEDTIME PRN PRN Reason: Insomnia Last Admin: 02/13/17 00:04 Dose: 25 mg Sodium Chloride (Normal Saline) 1,000 mls @ 125 mls/hr IV ASDIRECTED [facility] Last Admin: 02/13/17 08:27 Dose: 125 mls/hr Vancomycin HCl 1,000 mg/ (Sodium Chloride) 500 mls @ 250 mls/hr IV ONETIME ONE Stop: 02/13/17 12:59 Last Admin: 02/13/17 11:47 Dose: 250 mls/hr Levothyroxine Sodium (Levothyroxine) 150 mcg PO MoTuWeThFrSa [facility] Levothyroxine Sodium (Levothyroxine) 300 mcg PO Leija@0600 [facility] Multivitamins/Minerals (Thera M Plus) 1 tab PO DAILY [facility] Last Admin: 02/13/17 10:06 Dose: 1 tab Ondansetron HCl (Zofran) 4 mg IV Q4H PRN PRN Reason: Nausea/Vomiting Oxycodone/Acetaminophen (Percocet 325-5 Mg) 2 tab PO Q4H PRN PRN Reason: Pain Last Admin: 02/13/17 10:06 Dose: 2 tab Sertraline HCl (Zoloft) 200 mg PO DAILY [facility] Last Admin: 02/13/17 09:57 Dose: 200 mg Sodium Chloride (Saline Flush) 10 ml FLUSH ASDIRECTED PRN PRN Reason: Keep Vein Open Last Admin: 02/12/17 22:40 Dose: 10 ml Tramadol HCl (Ultram) 100 mg PO ONETIME PRN PRN Reason: Pain Stop: 02/14/17 05:52 Discontinued Medications Acetaminophen (Tylenol) 650 mg PO NOW ONE Stop: 02/12/17 21:15 Last Admin: 02/12/17 21:17 Dose: 650 mg Ceftriaxone Sodium 2 gm/ (Sodium Chloride) 100 mls @ 200 mls/hr IV ONETIME ONE Stop: 02/12/17 22:33 Last Admin: 02/12/17 22:46 Dose: 200 mls/hr Piperacillin Sod/Tazobactam (Sod 3.375 gm/ Sodium Chloride) 50 mls @ 100 mls/ hr IV ONETIME ONE Stop: 02/13/17 12:14 Last Admin: 02/13/17 12:11 Dose: 100 mls/hr Ibuprofen (Motrin) 600 mg PO ONETIME ONE Stop: 02/12/17 21:14 Last Admin: 02/12/17 21:16 Dose: 600 mg Levothyroxine Sodium (Levothyroxine) 150 mcg PO ONETIME ONE Stop: 02/13/17 09:46 Last Admin: 02/13/17 09:57 Dose: 150 mcg Morphine Sulfate (Morphine) 2 mg IVPUSH ONETIME STA Stop: 02/12/17 23:19 Last Admin: 02/13/17 00:03 Dose: 2 mg Potassium Chloride (Klor-Con M20) 40 meq PO ONETIME ONE Stop: 02/12/17 21:46 Last Admin: 02/12/17 21:50 Dose: 40 meq - Exam Physical Findings Comments:: General: Alert Lungs: Clear to Auscultation, Normal Respiratory Effort Cardiovascular: Regular Rate, Regular Rhythm GI/Abdominal Exam: Normal Bowel Sounds, Other (paniculectomy incision indurated 3 cm passed central with right bartolo sight draining mucopurulent discharge on palpation 3 ml. no incision dehiscense. very tender to palpation. ) Extremities: No: Non-Tender, No Pedal Edema, Pedal Edema Skin: Incision Psychiatric: Alert, Normal Affect, Normal Mood *Q Meaningful Use (DIS) - VTE *Q VTE Criteria *Q: - Stroke *Q Stroke Criteria *Q: - AMI *Q AMI Criteria *Q:
[2017-02-13 13:00] VITALS: BP 103/64
[2017-02-14] MEDS ORDERED: Levothyroxine 150 MCG Tab PO SCH (06:00)
[2017-02-15] MEDS ORDERED: Levothyroxine 150 MCG Tab PO SCH (06:00)
== END 2017-02-13 13:15 ==
LOC: FB.ED 20:35 → FB.MS 23:11
PROVIDERS: ADMIT Family Medicine; ATTEND Family Medicine
DX: T81.4XXA Infection following a procedure, initial encounter (principal); G62.9 Polyneuropathy, unspecified; F32.9 Major depressive disorder, single episode, unspecified; E03.9 Hypothyroidism, unspecified; E55.9 Vitamin D deficiency, unspecified; L68.0 Hirsutism; F17.200 Nicotine dependence, unspecified, uncomplicated; G47.30 Sleep apnea, unspecified; Z98.890 Other specified postprocedural states; Z79.899 Other long term (current) drug therapy; Z90.49 Acquired absence of other specified parts of digestive tract
CPT/HCPCS: 36415; 74176; 80048; 81001; 83605; 85025; 87040; 93005; 96361; 96365; 96367; 96375; 99285; A9270; G0378; J0696; J2270; J2543; J3370; J7030; J7040; J7050

== ENCOUNTER 2022-06-01 05:42 | Emergency (ER) | payer MEDICAID, OTHER ==
[2022-06-01] MEDS ORDERED: Sodium Chloride 0.9% 1,000 ML IV ONE (05:48)
[2022-06-01] MEDS ORDERED: EPINEPHrine 1 MG/1 ML Amp IVPUSH ONE ×3 (05:49→06:24)
[2022-06-01] MEDS ORDERED: EPINEPHrine 1:10,000 1 MG/10 ML Syringe IVPUSH ONE ×3 (05:49→06:24)
[2022-06-01] MEDS ORDERED: Rocuronium 100 MG/10 ML MDV IV ONE (05:53)
[2022-06-01] MEDS ORDERED: Midazolam 1 MG/ML 2 ML SDV IV ONE (05:53)
[2022-06-01] MEDS ORDERED: Norepinephrine 4 MG in Dextrose 5% in Water 246 ML IV SCH ×2 (06:33)
[2022-06-01] MEDS ORDERED: Norepinephrine Bit/D5W Premix 4 MG in Premix Bag 1 BAG IV SCH (06:33)
[2022-06-01 06:36] LABS: PO2 ARTERIAL,POC 334 mmHg (83-108)
[2022-06-01] MEDS ORDERED: Midazolam 1 MG/ML 2 ML SDV ONE (06:53)
[2022-06-01] MEDS ORDERED: Lactated Ringers 1,000 ML IV SCH (07:07)
[2022-06-01 07:41] LABS: ESTIMATED GFR 84 mL/min (>60)
[2022-06-01] MEDS ORDERED: Sodium Chloride 0.9% 10 ML Syringe FLUSH PRN (07:58)
[2022-06-01 08:21] LABS: ACETAMINOPHEN < 2 ug/mL (<2)
[2022-06-03 13:17] LABS: PO2 ARTERIAL,POC 220 mmHg (83-108)
== END 2022-06-01 08:12 | disposition other institution (70) ==
LOC: FB.ED 05:52
DX: T14.91XA Suicide attempt, initial encounter (principal); E03.9 Hypothyroidism, unspecified; Z79.899 Other long term (current) drug therapy; X83.8XXA Intentional self-harm by other specified means, initial encounter
CPT/HCPCS: 36415; 71045; 80053; 80143; 80179; 80307; 81025; 82803; 84443; 85025; 85610; 85730; 96361; 96365; 96375; 96376; 99285; 99285-25; 99291; J0171; J2250; J7030; J7120